=== PATIENT | female | born 1995 ===

== ENCOUNTER 2018-04-19 10:13 | Emergency (ER) | payer OTHER ==
[~2018-04-19] VITALS: Ht 167.6 cm; Wt 69.9 kg
--- NOTE | 2018-04-19 10:36 | NUR ---
TATES RIGHT IS BLURRY UNABLE TO SEEL CLEARLY. PT ALERT WITH ORIENTATION X 4.PT WALKED INTO EMERGENCY ROOM FOR RIGHT EYE BLURRINESS STARTING THIS AM WHEN PT WOKE UP PT S
[2018-04-19] MEDS ORDERED: FLUORESCEIN SODIUM OPHTH 1 EA STRIP ONE (10:39)
[2018-04-19] MEDS ORDERED: TETRACAINE HCL/PF 0.5% UD 2 ML BOTTLE ONE (10:39)
[2018-04-19] MEDS ORDERED: FLUORESCEIN SODIUM OPHTH 1 EA STRIP OP ONE (11:00)
[2018-04-19] MEDS ORDERED: TETRACAINE HCL/PF 0.5% UD 2 ML BOTTLE OP ONE (11:00)
[2018-04-19] MEDS ORDERED: ACYCLOVIR 200 MG CAPSULE PO STA (11:17)
[2018-04-19] MEDS ORDERED: ACYCLOVIR 200 MG CAPSULE ONE (11:28)
[2018-04-19] MEDS ORDERED: CIPROFLOXACIN HCL 0.3% 5 ML BOTTLE LEFTEYE ONE (11:30)
--- NOTE | 2018-04-19 12:10 | NUR ---
Patient discharged to home in stable condition. Written and verbal after care instructions given. Patient verbalizes understanding of instruction.
[2018-04-19 12:36] VITALS: BP 124/78
== END 2018-04-19 12:37 | disposition home or self-care (01) ==
LOC: ER 10:16
DX: H57.89 Other specified disorders of eye and adnexa (principal)
CPT/HCPCS: 99284; A4606; Z7610